=== PATIENT | female | born 1960 | race Caucasian/White ===

== ENCOUNTER → 2016-12-11 08:49 | Outpatient (CLI) | payer OTHER, BC ==
[2010-03-26 11:49] VITALS: BMI 34.7
== END | disposition home or self-care (01) ==
LOC: D.CT 08:49
DX: J32.9 Chronic sinusitis, unspecified (principal)

== ENCOUNTER → 2016-12-17 07:26 | Outpatient (CLI) | payer OTHER, BC ==
[2010-03-26 11:49] VITALS: BMI 34.7
== END | disposition home or self-care (01) ==
LOC: D.RAD 07:26
DX: K21.9 Gastro-esophageal reflux disease without esophagitis (principal)

== ENCOUNTER → 2017-01-18 10:30 | Outpatient (CLI) | payer BC, OTHER ==
[2010-03-26 11:49] VITALS: BMI 34.7
== END | disposition home or self-care (01) ==
LOC: D.RAD 10:30
DX: K21.9 Gastro-esophageal reflux disease without esophagitis (principal)

== ENCOUNTER → 2017-03-02 08:01 | Outpatient (CLI) | payer OTHER, BC ==
[2010-03-26 11:49] VITALS: BMI 34.7
== END | disposition home or self-care (01) ==
LOC: D.RAD 08:01
DX: K21.9 Gastro-esophageal reflux disease without esophagitis (principal)

== ENCOUNTER 2017-05-14 16:56 | Outpatient (CLI) | payer OTHER, BC ==
[2010-03-26 11:49] VITALS: BMI 34.7
== END 2017-05-14 23:59 | disposition home or self-care (01) ==
LOC: D.MAMMO 16:56
DX: Z12.31 Encounter for screening mammogram for malignant neoplasm of breast (principal)

== ENCOUNTER 2017-11-26 07:56 | Inpatient (IN) | payer BC, OTHER ==
[~2017-11-26] VITALS: Ht 167.6 cm; Wt 77.3 kg
--- NOTE | ~2017-11-26 | DS ---
PATIENT:FADI HENSON :56 MEDICAL RECORD: [id number] DISCHARGE SUMMARY ADMISSION DATE: 11/26/17 DISCHARGE DATE: 11/29/17 DATE OF ADMISSION: 11/26/2017 DATE OF DISCHARGE: 11/29/2017 CONDITION ON DISCHARGE: Improved. ADMITTING DIAGNOSES: Nausea and vomiting, partial bowel obstruction. DISCHARGE DIAGNOSES: Partial bowel obstruction, urinary tract infection, dehydration, history of bariatric surgery. HOSPITAL COURSE: A 57-year-old female, who presented complaining of nausea and vomiting. In the Emergency Room, she was found to have a partial small-bowel obstruction. The patient had NG tube placed. PHYSICAL EXAMINATION: VITAL SIGNS: She was afebrile. Her vital signs are stable. HEENT: Unremarkable. NECK: Supple. There is no adenopathy. HEART: Had a regular rate. LUNGS: Clear. ABDOMEN: Soft, bowel sounds hypoactive, somewhat distended. LABORATORY AND DIAGNOSTIC DATA: Initially, her white count is 13.3, hemoglobin was 16.1, hematocrit 46.3, her platelets 337. She had a BUN 33, creatinine 1.2. The patient was admitted. She was started on IV hydration. She was kept n.p.o. She had a CT of the abdomen and pelvis. CT of the abdomen and pelvis revealed small partial bowel obstruction. Surgical consultation was obtained. Over the coming days, the patient's condition slowly began to improve. On the 3rd, the patient's x-ray revealed gas-filled loops in the small bowel, although it looks like this was improving. The patient was started on a clear liquid diet, which she tolerated well. On the 4th, she had a KUB revealing findings suggesting improved or resolved small-bowel obstruction. It was felt the patient was stable, she could therefore be discharged. DISCHARGE INSTRUCTIONS: The patient was discharged home. She was discharged on Macrobid 100 mg b.i.d. for 14 days. She was to continue all her prior medications. She would follow up with me in 1 week. Follow up with Dr. Florentino in a week. 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
[2017-11-26 08:46] LABS: BASOPHILS 0.1 % (0-2); EOSINOPHILS 0.2 % (0-7); HEMATOCRIT 46.3 % (36.0-48.0); HEMOGLOBIN 16.1 g/dL (12-16); IMMATURE GRANULOCYTES 0.2 % (0-5); LYMPHOCYTES 6.5 % (15-50); MCH 34.7 pg (26.0-34.0); MCHC 34.8 g/dL (31.0-37.0); MCV 99.8 fL (80.0-100.0); MEAN PLATELET VOLUME 9.7 fL (7.4-10.4); MONOCYTES 6.2 % (2-11); NEUTROPHILS 86.8 % (40-80); RBC 4.64 10x6/uL (4.00-5.40); RDW 13.5 % (11.5-14.5); WBC 13.3 10x3/uL (4.8-10.8)
[2017-11-26 08:47] LABS: PLATELET COUNT 373 10x3/uL (130-400)
[2017-11-26 09:03] LABS: ALBUMIN 4.6 g/dL (3.4-5.0); ANION GAP 15.5 mmol/L (8-16); BILIRUBIN - TOTAL 0.9 mg/dL (0.2-1.3); CALCIUM 9.9 mg/dL (8.5-10.1); CARBON DIOXIDE 27.2 mmol/L (21.0-32.0); CREATININE - SERUM 1.2 mg/dL (0.6-1.3); MAGNESIUM - SERUM 2.1 mg/dL (1.8-2.4); POTASSIUM - SERUM 3.7 mmol/L (3.5-5.1); PROTEIN - SERUM 8.1 g/dL (6.4-8.2)
[2017-11-26 09:18] LABS: APPEARANCE CLEAR (CLEAR); COLOR DK YELLOW (YELLOW)
[2017-11-26 09:20] LABS: BACTERIA MODERATE /hpf (NONE SEEN); BILIRUBIN NEGATIVE (NEGATIVE); GLUCOSE NEGATIVE (NEGATIVE); KETONE NEGATIVE (NEGATIVE); NITRITE NEGATIVE (NEGATIVE); PROTEIN TRACE mg/dL (NEGATIVE); UROBILINOGEN NORMAL (NORMAL); WHITE CELLS - URINE 0-5 /hpf (0-5)
[2017-11-26 09:21] LABS: HYALINE CAST RARE /lpf (NONE SEEN); MUCUS >1+ /lpf (NONE SEEN); RED CELLS - URINE OCC /hpf (0-5)
[2017-11-26 12:47] LABS: T4 THYROXIN - FREE 0.35 ng/dL (0.76-1.46)
[2017-11-26 12:48] LABS: THYROID STIMULATING HORMONE 73.96 uIU/mL (0.36-3.74)
[2017-11-26 16:16] VITALS: BP 124/80; Ht 167.6 cm; Wt 77.3 kg
[2017-11-26 20:00] VITALS: BP 137/81
[2017-11-27] VITALS: BP 146/84
[2017-11-27 04:00] VITALS: BP 139/80
[2017-11-27 06:05] LABS: BASOPHILS 0.1 % (0-2); EOSINOPHILS 0.9 % (0-7); HEMATOCRIT 37.8 % (36.0-48.0); IMMATURE GRANULOCYTES 0.1 % (0-5); LYMPHOCYTES 12.9 % (15-50); MCH 33.8 pg (26.0-34.0); MCHC 33.1 g/dL (31.0-37.0); MEAN PLATELET VOLUME 9.8 fL (7.4-10.4); MONOCYTES 7.8 % (2-11); NEUTROPHILS 78.2 % (40-80); RDW 13.5 % (11.5-14.5)
[2017-11-27 06:08] LABS: HEMOGLOBIN 12.5 g/dL (12-16); MCV 102.2 fL (80.0-100.0); PLATELET COUNT 293 10x3/uL (130-400); WBC 7.8 10x3/uL (4.8-10.8)
[2017-11-27 06:35] LABS: ALKALINE PHOSPHATASE 37 U/L (46-116); CALCIUM 7.7 mg/dL (8.5-10.1); CARBON DIOXIDE 26.4 mmol/L (21.0-32.0); CHLORIDE - SERUM 107 mmol/L (98-107); GLUCOSE 113 mg/dL (74-106); PHOSPHOROUS 2.4 mg/dL (2.5-4.9); POTASSIUM - SERUM 4.1 mmol/L (3.5-5.1); SODIUM 138 mmol/L (136-145)
[2017-11-27 07:06] LABS: CALC OSMOLALITY 277 mosm/kg (275-300); UREA NITROGEN 15 mg/dL (7-18)
[2017-11-27 07:07] LABS: ALT (SGPT) 17 U/L (10-68); CREATININE - SERUM 0.8 mg/dL (0.6-1.3); PROTEIN - SERUM 5.7 g/dL (6.4-8.2); eGFR NON AFRICAN AMERICAN 78 mL/min (90-120)
[2017-11-27 09:04] VITALS: BP 134/83
[2017-11-27 13:23] VITALS: BP 148/88
[2017-11-27 16:58] VITALS: BP 129/76
[2017-11-27 19:36] VITALS: BP 142/84
[2017-11-28] VITALS: BP 134/78
[2017-11-28 04:00] VITALS: BP 133/80
[2017-11-28 06:30] LABS: BASOPHILS 0.2 % (0-2); EOSINOPHILS 0.5 % (0-7); HEMATOCRIT 37.6 % (36.0-48.0); HEMOGLOBIN 12.3 g/dL (12-16); IMMATURE GRANULOCYTES 0.4 % (0-5); LYMPHOCYTES 13.4 % (15-50); MCH 33.6 pg (26.0-34.0); MCHC 32.7 g/dL (31.0-37.0); MCV 102.7 fL (80.0-100.0); MEAN PLATELET VOLUME 9.7 fL (7.4-10.4); NEUTROPHILS 68.5 % (40-80); PLATELET COUNT 283 10x3/uL (130-400); RBC 3.66 10x6/uL (4.00-5.40); RDW 13.1 % (11.5-14.5)
[2017-11-28 06:33] LABS: WBC 5.5 10x3/uL (4.8-10.8)
[2017-11-28 06:36] LABS: CALC OSMOLALITY 273 mosm/kg (275-300); CHLORIDE - SERUM 103 mmol/L (98-107); CREATININE - SERUM 0.7 mg/dL (0.6-1.3); GLUCOSE 104 mg/dL (74-106); POTASSIUM - SERUM 3.8 mmol/L (3.5-5.1); SODIUM 138 mmol/L (136-145); eGFR NON AFRICAN AMERICAN > 90 mL/min (90-120)
[2017-11-28 06:38] LABS: UREA NITROGEN 6 mg/dL (7-18)
[2017-11-28 08:33] VITALS: BP 137/82
[2017-11-28 11:57] VITALS: BP 121/69
[2017-11-28 17:00] VITALS: BP 130/73
[2017-11-28 19:59] VITALS: BP 122/74
[2017-11-29 04:07] LABS: BASOPHILS 0.4 % (0-2); EOSINOPHILS 0.6 % (0-7); HEMATOCRIT 35.5 % (36.0-48.0); HEMOGLOBIN 11.7 g/dL (12-16); IMMATURE GRANULOCYTES 0.4 % (0-5); LYMPHOCYTES 20.6 % (15-50); MCH 33.7 pg (26.0-34.0); MCV 102.3 fL (80.0-100.0); MEAN PLATELET VOLUME 9.3 fL (7.4-10.4); MONOCYTES 14.8 % (2-11); NEUTROPHILS 63.2 % (40-80); PLATELET COUNT 254 10x3/uL (130-400); RBC 3.47 10x6/uL (4.00-5.40); WBC 4.7 10x3/uL (4.8-10.8)
[2017-11-29 04:22] LABS: CALC OSMOLALITY 277 mosm/kg (275-300); CALCIUM 7.9 mg/dL (8.5-10.1); CHLORIDE - SERUM 107 mmol/L (98-107); CREATININE - SERUM 0.6 mg/dL (0.6-1.3); GLUCOSE 95 mg/dL (74-106); POTASSIUM - SERUM 4.1 mmol/L (3.5-5.1); SODIUM 141 mmol/L (136-145); eGFR NON AFRICAN AMERICAN > 90 mL/min (90-120)
[2017-11-29 04:24] LABS: UREA NITROGEN 4 mg/dL (7-18)
[2017-11-29 04:30] VITALS: BP 116/71
[2017-11-29 09:08] VITALS: BP 135/84
[2017-11-29 12:45] VITALS: BP 141/77
[2017-11-29] MEDS ORDERED: MACROBID100 MG PO (12:46)
== END 2017-11-29 13:39 | disposition home or self-care (01) | DRG 389 ==
LOC: D.ER 07:56 → D.EDHOLD 11:11 → D.MS 11:11
PROVIDERS: Emergency Medicine; Family Medicine
PROC: 0D9670Z Drainage of Stomach with Drainage Device, Via Natural or Artificial Opening (ICD-10-PCS; principal; 2017-11-26)
DX: K56.7 Ileus, unspecified (principal); N17.9 Acute kidney failure, unspecified; N39.0 Urinary tract infection, site not specified; E86.0 Dehydration; K56.600 Partial intestinal obstruction, unspecified as to cause; Z98.84 Bariatric surgery status

== ENCOUNTER → 2018-06-23 18:01 | Outpatient (CLI) | payer BC, OTHER ==
[2017-11-26 16:16] VITALS: BMI 27.5
[~2018-06-23 18:01] MED LIST: MACROBID100 MG PO
== END | disposition home or self-care (01) ==
LOC: D.MAMMO 11:30
DX: Z12.31 Encounter for screening mammogram for malignant neoplasm of breast (principal)

== ENCOUNTER → 2018-08-04 05:35 | Day surgery (SDC) | payer BC ==
[2018-07-29 08:53] LABS: BASOPHILS 0.6 % (0-2); EOSINOPHILS 1.1 % (0-7); HEMATOCRIT 40.3 % (36.0-48.0); HEMOGLOBIN 13.5 g/dL (12-16); IMMATURE GRANULOCYTES 0.4 % (0-5); MCH 33.4 pg (26.0-34.0); MCHC 33.5 g/dL (31.0-37.0); MCV 99.8 fL (80.0-100.0); MEAN PLATELET VOLUME 9.5 fL (7.4-10.4); MONOCYTES 8.1 % (2-11); NEUTROPHILS 68.8 % (40-80); PLATELET COUNT 304 10x3/uL (130-400); RBC 4.04 10x6/uL (4.00-5.40); RDW 13.9 % (11.5-14.5); WBC 7.1 10x3/uL (4.8-10.8)
[2018-07-29 08:55] LABS: ANION GAP 12.1 mmol/L (8-16); CALCIUM 8.8 mg/dL (8.5-10.1); CARBON DIOXIDE 26.3 mmol/L (21.0-32.0); CREATININE - SERUM 0.9 mg/dL (0.6-1.3); POTASSIUM - SERUM 4.4 mmol/L (3.5-5.1)
[2018-07-29 08:56] LABS: APTT 30.6 SECONDS (22.8-39.4); INR 0.95 (0.85-1.17); PROTIME 12.2 SECONDS (11.6-15.0)
[~2018-08-04] VITALS: Ht 165.1 cm; Wt 79.4 kg
[~2018-08-04 05:35] MED LIST changes: +ALDACTONE50 MG PO; +ARMOUR THYROID120 MG PO; +ATROVENT HFA12.9 GM INH; +AZELASTINE HCL6 ML NASAL; +CARBINOXAMINE MALEAT PO; +CELEBREX200 MG PO; +CELEXA40 MG PO; +CENTRUM SILVER1 EAC3 PO; +CYPROHEPTAD2 MG/5 ML PO; +ESTRACE 0.5 MG0.5 MG PO; +FLUTICASONE PRO16 GM NASAL; +HYDROCHLOROTH12.5 M1 PO; +MIRALAX17 GM PO; +PROBIOTIC1 EAC1 PO; +PROMETRIUM200 MG PO; +ROBAXIN500 MG PO; +SINGULAIR10 MG PO; +SUDOGEST120 MG PO; +ULTRAM50 MG PO; +VALTREX500 MG PO; +VITAMIN B-1100 M1 PO; +XANAX0.5 MG PO
[2018-08-04 06:38] VITALS: BP 126/83; Ht 165.1 cm; Wt 79.4 kg
== END | disposition home or self-care (01) ==
LOC: D.PAN 05:35 → D.OPS 07:30 → D.PAN 07:50 → D.OPS 08:30 → D.PAN 08:30 → D.OPS 10-13 07:30
PROVIDERS: Anesthesiology; Orthopaedic Surgery
DX: M22.41 Chondromalacia patellae, right knee (principal); M94.261 Chondromalacia, right knee; M65.861 Other synovitis and tenosynovitis, right lower leg; Z01.812 Encounter for preprocedural laboratory examination